=== PATIENT | male | born 1935 | race Caucasian/White ===

== ENCOUNTER 2022-12-24 12:24 | Outpatient (CLI) | payer OTHER, SELFPAY ==
--- NOTE | 2022-12-24 12:59 | USCV_ITS ---
GIN Rosales Age: 87 Gender: M : 1935 Exam Date: 12/24/2022 13:41 Ordering Phys: VIRGINIA JACOBS NP Technologist: Adin Espino Exam Location: [facility] [place] Indication: claudication RIGHT LEFT Brachial 127.00 mmHg Brachial 130.00 mmHg Pressure (mmHg) Waveform Pressure (mmHg) Waveform 160.00 LEAD COATER 151.00 147.00 DPA 153.00 1.20 Ankle/Brachial Index 1.10 FINDINGS Resting JONY 1.2 on the right and 1.1 on the left CONCLUSIONS Normal resting ABIs bilaterally suggesting no significant arterial obstruction Dr Cornelia Salazar MD [facility] (Electronically Signed) Final Date: 25 December 2022 21:51 S
== END 2022-12-24 12:25 | disposition home or self-care (01) ==
LOC: RAD 12:30
PROVIDERS: PCP Internal Medicine; Visit Provider Nurse Practitioner Family
DX: I73.9 Peripheral vascular disease, unspecified (principal)
CPT/HCPCS: 93922